=== PATIENT | female | born 1975 | race American Indian/Alaskan Native ===

== ENCOUNTER 2019-02-04 14:14 | Outpatient (CLI) | payer OTHER ==
--- NOTE | 2019-02-04 15:24 | Mammography Report ---
DIGITAL BILATERAL DIAGNOSTIC MAMMOGRAM WITH CAD, 02/04/2019 INDICATION: NIPPLE DISCHARGE. A recent single incident of milky white discharge from the left breast which lasted for 3 hours. No pain or lump. TECHNIQUE: Digital bilateral mammographic imaging was performed. This examination was interpreted with the benefit of Computer-aided Detection analysis. COMPARISON: None. Breast Density: The breasts are almost entirely fatty. FINDINGS: No mass, architectural distortion or suspicious calcifications of either breast. A right be nign intraparenchymal lymph node with central fat at 6:00 approximately 16 cm from the nipple. IMPRESSION: No mammographic evidence of malignancy. Since the character of the recent left nipple dis charge is not suspicious and there are no other symptoms, recommend clinical follow-up and additional imaging of the left breast only if there are new symptoms. Follow up recommendation: Routine BI-RADS Category 2: Benign. A "normal" or negative report should not discourage follow up or biopsy of a clinically significant f inding. A written summary of these findings will be mailed to the patient. The patient will be entered into a mammography reporting system which will generate a reminder letter for the patient's next appointmen t at the appropriate interval. According to the [employer], yearly mammograms are recommended starting at age 40 and continuing as long as a woman is in good health. Breast MRI is recommended for women with an vishnu roximately 20-25% or greater lifetime risk of breast cancer, including women with a strong family his tory of breast or ovarian cancer and women who have been treated for Hodgkin's disease. Signer Name: Elkin Harper MD Signed: 02/04/2019 3:20 PM Workstation Name: [id number]
== END 2019-02-04 14:15 | disposition home or self-care (01) ==
LOC: MAMMO 14:14
PROVIDERS: ATTEND Nurse Practitioner Gerontology
DX: R92.8 Other abnormal and inconclusive findings on diagnostic imaging of breast (principal)
CPT/HCPCS: 77066